=== PATIENT | male | born 1990 | race Caucasian/White ===

== ENCOUNTER 2021-09-26 13:36 | Emergency (ER) | payer OTHER ==
[~2021-09-26] VITALS: Ht 180.3 cm; Wt 108.9 kg
--- NOTE | 2021-09-26 14:22 | NUR ---
PATRICK PUGA seen and examined the pt.
[2021-09-26] MEDS ORDERED: AMOX-430 PO (14:36)
--- NOTE | 2021-09-26 14:57 | NUR ---
Patient discharged to home in stable condition. Written and verbal after care instructions given. Patient verbalizes understanding of instructions. Stressed follow up or return to ER for worsening s/s.
[2021-09-26 14:58] VITALS: BP 157/97
== END 2021-09-26 14:58 | disposition home or self-care (01) ==
LOC: ER 13:36
DX: K04.7 Periapical abscess without sinus (principal); R68.84 Jaw pain; F17.200 Nicotine dependence, unspecified, uncomplicated
CPT/HCPCS: A4663